=== PATIENT | female | born 1955 | race Caucasian/White ===

== ENCOUNTER → 2017-09-13 | Outpatient (CLI) | payer BC ==
[~2017-09-13] MED LIST: DILAUDID 2MG TAB2 MG PO; FAMVIR250 MG PO; HYDROCODONE BIT1 TA8 PO
== END ==
LOC: MHCPAIN 09:36
DX: G89.29 Other chronic pain (principal); M47.812 Spondylosis without myelopathy or radiculopathy, cervical region
CPT/HCPCS: G0463

== ENCOUNTER → 2017-09-13 | Outpatient (CLI) | payer BC | LOC: COL.RAD 11:30 | DX: S13.150A Subluxation of C4/C5 cervical vertebrae, initial encounter (principal); S13.160A Subluxation of C5/C6 cervical vertebrae, initial encounter ==

== ENCOUNTER → 2017-10-07 | Outpatient (CLI) | payer BC | LOC: MHCPAIN 07:45 | DX: G89.29 Other chronic pain (principal); M50.122 Cervical disc disorder at C5-C6 level with radiculopathy | CPT/HCPCS: G0463 ==

== ENCOUNTER → 2017-10-27 | Outpatient (CLI) | payer BC | LOC: MHCPAIN 07:42 | DX: M50.122 Cervical disc disorder at C5-C6 level with radiculopathy (principal); M43.12 Spondylolisthesis, cervical region; M99.51 Intervertebral disc stenosis of neural canal of cervical region | CPT/HCPCS: J1100; J2250; J3010; Q9967 ==

== ENCOUNTER → 2017-11-11 | Outpatient (CLI) | payer BC | LOC: MHCPAIN 08:18 | DX: G89.29 Other chronic pain (principal); M50.122 Cervical disc disorder at C5-C6 level with radiculopathy | CPT/HCPCS: G0463 ==

== ENCOUNTER → 2021-11-02 | Outpatient (CLI) | payer MEDICARE, OTHER ==
[2021-11-02 13:05] LABS: HEMATOCRIT 35.8 % (37.0-47.0); HEMOGLOBIN 12.3 g/dl (12.5-16.0); MEAN CELL VOLUME 97 fl (80.0-100.0); MEAN CORPUSCULAR HEMOGLOBIN 33 pg (27.0-31.0); MEAN CORPUSCULAR HGB CONC 34 g/dl (33.0-37.0); MEAN PLATELET VOLUME 8.7 fl (7.4-10.4); PLATELET COUNT 222 K/mm3 (130-400); RED BLOOD COUNT 3.69 M/mm3 (4.10-5.30); REDCELL DISTRIBUTION WIDTH-CV 11.9 % (11.5-14.5)
[2021-11-02 13:27] LABS: ERYTHROCYTE SEDIMENTATION RATE 7 mm/hr (0-30)
== END ==
LOC: COL.LAB 12:20
PROVIDERS: Orthopaedic Surgery
DX: M25.552 Pain in left hip (principal); Z96.642 Presence of left artificial hip joint

== ENCOUNTER → 2022-03-17 | Outpatient (CLI) | payer MEDICARE, OTHER ==
[~2022-03-17] MED LIST changes: +COZAAR100 MG PO; +MOTRIN 800800 MG/TAB PO; +NORCO 325 MG-7.1 TAB PO
== END ==
LOC: MHCPAIN 09:17
DX: M47.896 Other spondylosis, lumbar region (principal); M96.1 Postlaminectomy syndrome, not elsewhere classified; M54.16 Radiculopathy, lumbar region; M25.551 Pain in right hip; M25.552 Pain in left hip
CPT/HCPCS: G0463

== ENCOUNTER → 2022-03-18 | Outpatient (CLI) | payer MEDICARE, OTHER | LOC: MHCPAIN 11:31 | DX: M47.817 Spondylosis without myelopathy or radiculopathy, lumbosacral region (principal); M54.16 Radiculopathy, lumbar region; M54.50 Low back pain, unspecified | CPT/HCPCS: J1100; Q9967 ==

== ENCOUNTER 2022-03-23 20:45 | Inpatient (IN) | payer MEDICARE, OTHER ==
[~2022-03-23] VITALS: Ht 152.4 cm; Wt 56.4 kg
[~2022-03-23 20:45] MED LIST changes: -COZAAR100 MG PO; -MOTRIN 800800 MG/TAB PO; -NORCO 325 MG-7.1 TAB PO
[2022-03-23 22:40] LABS: COLLECTION METHOD CLEAN CATCH
[2022-03-23 22:46] LABS: BASO % 0.7 % (0.0-2.0); EOS # 0.1 K/mm3 (0.0-0.7); EOS % 1.4 % (0.0-4.0); GRAN # 3.9 K/mm3 (1.4-6.5); GRAN % 66.6 % (42.2-75.2); HEMOGLOBIN 13.4 g/dl (12.5-16.0); LYMPH # 0.9 K/mm3 (1.2-3.4); MEAN CELL VOLUME 89 fl (80.0-100.0); MEAN CORPUSCULAR HEMOGLOBIN 33 pg (27-31); MEAN CORPUSCULAR HGB CONC 37 g/dl (33.0-37.0); MEAN PLATELET VOLUME 9.5 fl (7.4-10.4); MONO # 0.9 K/mm3 (0.1-0.6); MONO % 14.6 % (1.7-9.3); PLATELET COUNT 237 K/mm3 (130-400); RED BLOOD COUNT 4.06 M/mm3 (4.10-5.30); REDCELL DISTRIBUTION WIDTH-CV 11.3 % (11.5-14.5)
[2022-03-23 22:50] LABS: HEMATOCRIT 36.2 % (37.0-47.0)
[2022-03-23 22:53] LABS: PH 5 (5-8); SQUAMOUS EPITHELIAL None Seen /hpf (0-10); URINE APPEARANCE Hazy (CLEAR/HAZY); URINE BACTERIA None Seen /hpf (NONE SEEN); URINE BILIRUBIN Negative (NEGATIVE); URINE BLOOD Negative (NEGATIVE); URINE COLOR Yellow (YELLOW); URINE GLUCOSE Negative (NEGATIVE); URINE KETONE Negative (NEGATIVE); URINE LEUKOCYTE ESTERASE Negative (NEGATIVE); URINE NITRATE Negative (NEGATIVE); URINE PROTEIN(semi-quant) Negative (NEGATIVE); URINE RBC 0-2 /hpf (0-2); URINE UROBILINOGEN Negative (NEGATIVE)
[2022-03-23 23:04] LABS: ALANINE AMINOTRANSFERASE 22 U/L (0-55); ALBUMIN 4.5 gm/dL (3.4-4.8); ALKALINE PHOSPHATASE 94 U/L (40-150); ANION GAP 14 mmol/L (7-16); AST,SGOT 22 U/L (5-34); BILIRUBIN,TOTAL 0.6 mg/dL (0.2-1.2); BLOOD UREA NITROGEN 16 mg/dL (10-20); CALCIUM 9.4 mg/dL (8.4-10.2); CARBON DIOXIDE 24 mmol/L (23-31); CREATININE, serum 1.25 mg/dL (0.57-1.11); GLUCOSE 95 mg/dL (70-99); TOTAL PROTEIN 7.4 gm/dL (6.2-8.1)
[2022-03-23 23:09] LABS: CHLORIDE 80 mmol/L (98-107); POTASSIUM 2.8 mmol/L (3.5-4.5); SODIUM 118 mmol/L (136-145)
[2022-03-23 23:26] LABS: TROPONIN-I < 0.010 ng/mL (0.00-0.033)
[2022-03-24] VITALS (7 sets, daily range): BP systolic 115–178; BP diastolic 58–86; PULSE 80–92; TEMP 97.5–98.7
[2022-03-24] MEDS ORDERED: NORCO 325 MG-7.1 TAB PO (01:50)
[2022-03-24] MEDS ORDERED: MOTRIN 800800 MG/TAB PO (01:51)
--- NOTE | 2022-03-24 01:57 | NUR ---
Pt. arrive to the floor via stretcher, pt. able to ambulate to the bed with standby assist. Pt. is A&OX3, assessment complete. INT to rt. ac patent, IV fluids infusing per orders. Pt. denies further needs, call light within reach.
[2022-03-24 04:29] LABS: CALCIUM 9.3 mg/dL (8.4-10.2); CREATININE, serum 1.09 mg/dL (0.57-1.11); POTASSIUM 4.2 mmol/L (3.5-4.5)
--- NOTE | 2022-03-24 04:37 | NUR ---
SAMANTHA Deras notified of critical labs. No new orders at this time.
[2022-03-24] MEDS ORDERED: COZAAR100 MG PO (07:23)
--- NOTE | 2022-03-24 09:06 | NUR ---
PT RESTING IN BED. PO PAIN MEDS GIVEN PER ORDERS. IV TO PUMP PER ORDERS. LAB WORK IMPROVING.
--- NOTE | 2022-03-24 09:12 | NUR ---
Social Work student met with patient to discuss discharge planning. Patient lives in [place] with her , Luis(ph#[phone]). Patient seees Dr. Momin for primary care and receives her medications from [email or web address]. Patient states that she does not utilize any durable medical equiptment, and that she is independent with her ADL's. Patient does not have a DPOA-HC on file, but she states she is not interested in filling one out because her would legally be next of kin and that is who she would appoint. Patient is legally to her , Luis, and she has one daughter, Pat. Patient states that she is comfortable discharging home. *Discharge plan: Home*
--- NOTE | 2022-03-24 09:55 | NUR ---
CALLED DAVIDSON QUINTANA APRN AND NOTIFIED OF CONSULT. LEFT MESSAGE.
[2022-03-24 10:11] LABS: CALCIUM 8.7 mg/dL (8.4-10.2); CREATININE, serum 0.86 mg/dL (0.57-1.11); POTASSIUM 4.3 mmol/L (3.5-4.5)
--- NOTE | 2022-03-24 10:21 | NUR ---
Initial visit; Patient thanked Corrections Caseworker for looking in on her and cried intermittently. Patient stated Corrections Caseworker could keep her in her prayers although she isn't a worship goer or a believer in something she can't see. Corrections Caseworker let her know she understands how difficult it can be to believe when we see so much hardship but this is Satan's world, not God's. Someday it will change. Corrections Caseworker asked if she could keep patient in her prayers which Samara responded that "yes, she can keep her in her prayers." Corrections Caseworker will follow up.
--- NOTE | 2022-03-24 10:23 | NUR ---
PT AMBULATING INDEPENDENTLY WITH FAMILY IN HALLS.
--- NOTE | 2022-03-24 10:35 | NUR ---
Social Work student called the patient's , Luis, to introduce oneself and inquire if there were any questions or concerns at home. Luis stated that she does get around "pretty well" and that he has no worries for her coming back home. Social Work has no concerns at this time.
[2022-03-24 16:07] LABS: CALCIUM 8.7 mg/dL (8.4-10.2); CREATININE, serum 0.9 mg/dL (0.57-1.11); POTASSIUM 4.6 mmol/L (3.5-4.5)
--- NOTE | 2022-03-24 21:15 | NUR ---
Pt. sitting up in bed. Pt. is A&OX3, assessment complete. IV to rt. forearm patent, IV fluids infusing per orders. Pt. denies pain or other needs, call light within reach.
[2022-03-25 03:28] VITALS: BP 151/71; PULSE 84; TEMP 98.5
[2022-03-25 05:27] LABS: EOS # 0.1 K/mm3 (0.0-0.7); EOS % 2.6 % (0.0-4.0); GRAN # 1.7 K/mm3 (1.4-6.5); GRAN % 55.8 % (42.2-75.2); LYMPH # 0.8 K/mm3 (1.2-3.4); LYMPH % 24.8 % (20.0-51.0); MEAN CELL VOLUME 92 fl (80.0-100.0); MEAN CORPUSCULAR HGB CONC 36 g/dl (33.0-37.0); MEAN PLATELET VOLUME 9.6 fl (7.4-10.4); MONO # 0.5 K/mm3 (0.1-0.6); MONO % 15.5 % (1.7-9.3); PLATELET COUNT 189 K/mm3 (130-400); RED BLOOD COUNT 3.22 M/mm3 (4.10-5.30); REDCELL DISTRIBUTION WIDTH-CV 11.8 % (11.5-14.5)
[2022-03-25 05:39] LABS: CALCIUM 8.6 mg/dL (8.4-10.2); CREATININE, serum 0.67 mg/dL (0.57-1.11); POTASSIUM 4.6 mmol/L (3.5-4.5)
[2022-03-25 05:45] LABS: HEMATOCRIT 29.6 % (37.0-47.0); HEMOGLOBIN 10.6 g/dl (12.5-16.0); MEAN CORPUSCULAR HEMOGLOBIN 33 pg (27-31)
[2022-03-25 08:00] VITALS: BP 153/86; PULSE 90; TEMP 98.2
--- NOTE | 2022-03-25 08:00 | NUR ---
PATIENT IS A&O AND SITTING UP IN BED WITH BREAKFAST TRAY. NO C/O PAIN OR NAUSEA. IV FLUIDS INFUSING INTO LEFT FORARM. VSS ON TELE. HEAD TO TOE ASSESSMENT WNL. AM N+ IS 132. PATIENT HOPING TO DISCHARGE HOME TODAY. NO NEEDS AT THIS TIME. CALL LIGHT IN REACH.
--- NOTE | 2022-03-25 11:25 | NUR ---
PATIENT DISCHARGING HOME VIA AMBULATORY WITH AND DAUGHTER TO PERSONAL VEHICLE. GAVE DISCHARGE INSTRUCTIONS AND DISCUSSED MED CHANGE AND F/U APT WITH PCP. ANSWERED QUESTIONS/CONERNS. DC'D IV SITE AND COVERED WITH [employer]. DC'D TELE. PATIENT IS DRESSED, PACKED AND DISCHARGED.
== END 2022-03-25 11:25 | disposition home or self-care (01) | DRG 641 ==
LOC: COL.ER 20:45 → SURG 23:55
PROVIDERS: Emergency Medicine; Student in an Organized Health Care Education/Training Program; ADMIT Student in an Organized Health Care Education/Training Program
DX: E87.1 Hypo-osmolality and hyponatremia (principal); N17.9 Acute kidney failure, unspecified; I10 Essential (primary) hypertension; E87.6 Hypokalemia; G89.29 Other chronic pain; M54.9 Dorsalgia, unspecified; E87.8 Other disorders of electrolyte and fluid balance, not elsewhere classified; E83.42 Hypomagnesemia; K30 Functional dyspepsia; K21.9 Gastro-esophageal reflux disease without esophagitis
CPT/HCPCS: 99223-AI; 99233-AI; 99239; J0360; J1644; J3475; J3480; J7030

== ENCOUNTER → 2022-03-31 | Outpatient (CLI) | payer MEDICARE, OTHER ==
[~2022-03-31] MED LIST changes: +COZAAR100 MG PO; +MOTRIN 800800 MG/TAB PO; +NORCO 325 MG-7.1 TAB PO
== END ==
LOC: MHCPAIN 10:36
DX: M47.816 Spondylosis without myelopathy or radiculopathy, lumbar region (principal); M54.16 Radiculopathy, lumbar region; M96.1 Postlaminectomy syndrome, not elsewhere classified; M53.3 Sacrococcygeal disorders, not elsewhere classified
CPT/HCPCS: G0463

== ENCOUNTER → 2022-04-22 | Outpatient (CLI) | payer MEDICARE, OTHER | LOC: MHCPAIN 09:56 | DX: M47.817 Spondylosis without myelopathy or radiculopathy, lumbosacral region (principal); M54.16 Radiculopathy, lumbar region; M53.3 Sacrococcygeal disorders, not elsewhere classified | CPT/HCPCS: J1100; Q9967 ==

== ENCOUNTER → 2022-05-12 | Outpatient (CLI) | payer MEDICARE, OTHER | LOC: MHCPAIN 09:36 | DX: M47.896 Other spondylosis, lumbar region (principal); M53.3 Sacrococcygeal disorders, not elsewhere classified; M54.16 Radiculopathy, lumbar region | CPT/HCPCS: G0463 ==

== ENCOUNTER → 2022-06-03 | Outpatient (CLI) | payer MEDICARE, OTHER | LOC: MHCPAIN 09:18 | DX: M47.817 Spondylosis without myelopathy or radiculopathy, lumbosacral region (principal); M54.16 Radiculopathy, lumbar region; M53.3 Sacrococcygeal disorders, not elsewhere classified | CPT/HCPCS: J1100; Q9967 ==

== ENCOUNTER → 2022-06-22 | Outpatient (CLI) | payer MEDICARE, OTHER | LOC: MHCPAIN 09:53 | DX: M48.48XA Fatigue fracture of vertebra, sacral and sacrococcygeal region, initial encounter for fracture (principal); M54.16 Radiculopathy, lumbar region; M53.3 Sacrococcygeal disorders, not elsewhere classified; M96.1 Postlaminectomy syndrome, not elsewhere classified | CPT/HCPCS: G0463 ==